=== PATIENT | male | born 1950 | race Caucasian/White ===

== ENCOUNTER 2017-06-09 15:41 | Inpatient (IN) | payer MEDICARE, OTHER ==
[~2017-06-09] VITALS: Ht 179.1 cm; Wt 95.9 kg
[~2017-06-09 15:41] MED LIST: ASPI81TA11 PO; CETI10 PO; DIAZ5TAB PO; EXPECTORANT; LISI40TA PO; MOBI7.5T PO; MULTTAB67 PO; NAPR500 PO; OMEP20TA PO; SIMV20TA PO; TRAZ50TA12 PO; VENTAER INH; [UNRECOGNIZED DRUG - REMARK] PO
[2017-06-09] MEDS ORDERED: RESP: ALBUTEROL 2.5 MG/3 ML NEB (PRN) INH (18:00)
[2017-06-09] MEDS ORDERED: oxyCODONE/ACETAMINOPHEN 5 MG/325 MG TAB PO PRN (18:00)
[2017-06-09] MEDS ORDERED: LACTULOSE SYRUP 20 GM/30 ML CUP PO PRN (18:00)
[2017-06-09] MEDS ORDERED: SENNOSIDES 8.6 MG TAB PO PRN (18:00)
[2017-06-09] MEDS ORDERED: NALOXONE HCL 0.4 MG/ML AMP IV PUSH PRN (18:00)
[2017-06-09] MEDS ORDERED: SODIUM CHLORIDE 0.9% FLUSH 10 ML FLUSH IV FLUSH PRN ×2 (18:00)
[2017-06-09] MEDS ORDERED: MAGNESIUM HYDROXIDE SUSP 30 ML CUP PO PRN (18:00)
[2017-06-09] MEDS ORDERED: ACETAMINOPHEN 325 MG TAB PO PRN ×2 (18:00)
[2017-06-09] MEDS ORDERED: oxyCODONE/ACETAMINOPHEN 10 MG/325 MG TAB PO PRN (18:00)
[2017-06-09] MEDS ORDERED: ONDANSETRON HCL 4 MG/2 ML VIAL IVP PRN (18:00)
[2017-06-09] MEDS ORDERED: DEXTROSE 50% IN WATER 50 ML VIAL(D50) IV PUSH PRN (18:00)
[2017-06-09] MEDS ORDERED: MORPHINE SULFATE 4 MG/ML INJ IV PUSH PRN ×2 (18:00)
[2017-06-09] MEDS ORDERED: GLUCAGON 1 MG/ML VIAL OTHER PRN ×2 (18:00)
[2017-06-09] MEDS ORDERED: PROCHLORPERAZINE 25 MG SUPP RECTAL PRN (18:00)
[2017-06-09] MEDS ORDERED: BISACODYL 10 MG SUPP RECTAL PRN (18:00)
[2017-06-09 20:00] VITALS: BP 147/78; PULSE 114; RESP 20; TEMP 98; O2SAT 95
[2017-06-09] MEDS: RESP: ALBUTEROL 2.5 MG/IPRATROPIUM 0.5 MG NEB (SCH) INH (20:00)
[2017-06-09] MEDS ORDERED: ENOXAPARIN SODIUM 40 MG/0.4 ML SYRINGE SQ SCH (20:00)
[2017-06-09 20:28] VITALS: O2SAT 96
[2017-06-09] MEDS ORDERED: traZODone HCL 50 MG TAB PO SCH (21:00)
[2017-06-09] MEDS ORDERED: PRAVASTATIN SOD 40 MG TAB PO SCH (21:00)
[2017-06-09] MEDS ORDERED: SODIUM CHLORIDE 0.9% FLUSH 10 ML FLUSH IV FLUSH SCH (21:00)
[2017-06-09] MEDS: NAPROXEN 500 MG TAB PO SCH ×2 (21:00→23:41)
[2017-06-09] MEDS: guaiFENesin E.R. 600 MG TAB PO SCH (21:00)
[2017-06-09] MEDS: INSULIN ASPART SUPPLEMENTAL SCALE SQ SCH ×2 (21:00→23:42)
[2017-06-09] MEDS: DOCUSATE SODIUM 50 MG/SENNA 8.6 MG TAB PO SCH (21:00)
--- NOTE | 2017-06-09 21:13 | EKG ---
Date Performed: 06/09/2017 Time Performed: 19:53:53 PTAGE: 66 years EKG: SINUS TACHYCARDIA POSSIBLE LEFT ATRIAL ENLARGEMENT SEPTAL MYOCARDIAL INFARCTION , OF INDETE RMINATE AGE Nonspecific T wave changes Compared to prior electrocardiogram, Premature ventricular con tractions no longer present. ABNORMAL ECG NO PREVIOUS TRACING DOCTOR: Triston Grant Interpretating Date/Time 06/09/2017 21:11:30
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
[2017-06-09] MEDS: SODIUM CHLORIDE 0.9% FLUSH 10 ML FLUSH IV FLUSH SCH (23:40)
[2017-06-09] MEDS: BUDESONIDE-FORMOTEROL 160/4.5 MCG INHALER INH SCH (23:40)
[2017-06-09] MEDS: methylPREDNISolone SOD SUCC 125 MG/2 ML VIAL IV PUSH SCH (23:41)
[2017-06-10] VITALS (8 sets, daily range): BP systolic 123–141; BP diastolic 72–96; PULSE 77–122; RESP 16–20; TEMP 97.4–97.8; O2SAT 92–100
[2017-06-10] MEDS: RESP: ALBUTEROL 2.5 MG/IPRATROPIUM 0.5 MG NEB (SCH) INH ×5 (00:26→16:00)
[2017-06-10] MEDS ORDERED: METHOCARBAMOL 500 MG TAB PO ONE (01:15)
[2017-06-10] MEDS ORDERED: VENLAFAXINE HCL XR 75 MG CAP PO ONE (01:15)
[2017-06-10] MEDS ORDERED: DIAZEPAM 5 MG TAB PO PRN (01:15)
[2017-06-10] MEDS ORDERED: ROBA500T PO (01:17)
[2017-06-10] MEDS ORDERED: VENL75XR PO (01:17)
[2017-06-10] MEDS ORDERED: DIAZ5 PO (01:17)
[2017-06-10] MEDS ORDERED: LISINOPRIL 20 MG TAB PO ONE (02:00)
[2017-06-10] MEDS ORDERED: LISINOPRIL 5 MG TAB PO ONE (02:00)
[2017-06-10] MEDS: methylPREDNISolone SOD SUCC 125 MG/2 ML VIAL IV PUSH SCH ×3 (02:09→14:01)
[2017-06-10 05:56] LABS: AUTOMATED NEUTROPHIL # 5.7 TH/MM3 (1.8-7.7); BASOPHIL % 0.2 % (0.0-2.0); EOSINOPHIL % 0.1 % (0.0-4.0); HEMATOCRIT 44.2 % (39.0-51.0); HEMO FLAGS DIFF FINAL; LYMPH % 9.3 % (9.0-44.0); LYMPHOCYTE # 0.6 TH/MM3 (1.0-4.8); MEAN CELL VOLUME 87.4 FL (80.0-100.0); MEAN CORPUSCULAR HEMOGLOBIN 29.4 PG (27.0-34.0); MEAN CORPUSCULAR HGB CONC 33.6 % (32.0-36.0); MONO % 3.8 % (0.0-8.0); NEUT % 86.6 % (16.0-70.0); PLATELET COUNT 178 TH/MM3 (150-450); RED BLOOD COUNT 5.06 MIL/MM3 (4.50-5.90); RED CELL DISTRIBUTION WIDTH 15.6 % (11.6-17.2); WHITE BLOOD COUNT 6.6 TH/MM3 (4.0-11.0)
[2017-06-10 06:18] LABS: ALT (GPT) 38 U/L (12-78); ANION GAP 7 MEQ/L (5-15); AST (GOT) 14 U/L (15-37); BICARBONATE 28.9 MEQ/L (21.0-32.0); BLOOD UREA NITROGEN 12 MG/DL (7-18); CHLORIDE 101 MEQ/L (98-107); GLOMERULAR FILTRATION RATE 78 ML/MIN (>89); MAGNESIUM 1.9 MG/DL (1.5-2.5); POTASSIUM 3.9 MEQ/L (3.5-5.1); SODIUM (NA) 137 MEQ/L (136-145)
[2017-06-10 06:27] LABS: ALKALINE PHOSPHATASE 64 U/L (45-117); FREE T4 0.89 NG/DL (0.76-1.46); TOTAL BILIRUBIN ADULT 0.6 MG/DL (0.2-1.0)
[2017-06-10 06:29] LABS: CREATINE KINASE 80 U/L (39-308)
[2017-06-10] MEDS: INSULIN ASPART SUPPLEMENTAL SCALE SQ SCH ×2 (08:00→11:50)
[2017-06-10] MEDS ORDERED: FUROSEMIDE 20 MG/2 ML VIAL IV PUSH SCH (09:00)
[2017-06-10] MEDS ORDERED: LISINOPRIL 20 MG TAB PO SCH ×2 (09:00→21:00)
[2017-06-10] MEDS ORDERED: PANTOPRAZOLE SOD 20 MG DELAYED RELEASE TAB PO SCH (09:00)
[2017-06-10] MEDS ORDERED: MULTIVITAMIN TAB PO SCH (09:00)
[2017-06-10] MEDS ORDERED: METHOCARBAMOL 500 MG TAB PO SCH (09:00)
[2017-06-10] MEDS ORDERED: ASPIRIN EC 81 MG TABEC PO SCH (09:00)
[2017-06-10] MEDS ORDERED: CETIRIZINE HCL 10 MG TAB PO SCH (09:00)
[2017-06-10] MEDS: NAPROXEN 500 MG TAB PO SCH (09:18)
[2017-06-10] MEDS: DOCUSATE SODIUM 50 MG/SENNA 8.6 MG TAB PO SCH (09:19)
[2017-06-10] MEDS: guaiFENesin E.R. 600 MG TAB PO SCH (09:20)
[2017-06-10] MEDS: SODIUM CHLORIDE 0.9% FLUSH 10 ML FLUSH IV FLUSH SCH (09:21)
[2017-06-10] MEDS: BUDESONIDE-FORMOTEROL 160/4.5 MCG INHALER INH SCH (09:21)
--- NOTE | 2017-06-10 09:27 | EKG ---
Date Performed: 06/10/2017 Time Performed: 00:25:40 PTAGE: 66 years EKG: Sinus tachycardia Possible septal infarct - age undetermined Lateral T wave changes are non specific Abnormal ECG Compared to prior electrocardiogram, probably no significant change. PREVIOUS TRACING : 06/09/2017 19.53 DOCTOR: Triston Grant Interpretating Date/Time 06/10/2017 09:26:05
--- NOTE | 2017-06-10 11:33 | ECHRPT ---
Indication: heart failure CONCLUSIONS The left ventricular systolic function is severely reduced with an estimated ejection fraction in th e range of 20-25%. Normal left ventricular size. Mild mitral valve regurgitation. The left ventricular systolic function is severely reduced with an estimated ejection fraction in th e range of 20-25%. Mildly dilated left ventricle. Mild concentric left ventricular hypertrophy. Doppler parameters are consistent with impaired left ventricular relaxtion (grade 1 diastolic dysfun ction). The left atrial size is mildly dilated. Mild mitral valve regurgitation. The aortic valve is not well visualized. Moderate thickening of the aortic valve leaflets. Aortic valve sclerosis is present. No aortic valve stenosis. No aortic valve regurgitation. There is trace tricuspid valve regurgitation. The inferior vena cava is dilated. A left sided pleural effusion is noted. BP: / HR: Rhythm: MEASUREMENTS (Male / Female) Normal Values Technical Quality:Fair 2D ECHO LV Diastolic Diameter PLAX 4.8 cm 4.2 - 5.9 / 3.9 - 5.3 cm LV Systolic Diameter PLAX 4.4 cm IVS Diastolic Thickness 1.3 cm 0.6 - 1.0 / 0.6 - 0.9 cm LVPW Diastolic Thickness 1.3 cm 0.6 - 1.0 / 0.6 - 0.9 cm LV Relative Wall Thickness 0.5 RV Internal Dim ED PLAX 2.9 cm M-MODE Aortic Root Diameter MM 3.6 cm LA Systolic Diameter MM 5.0 cm LA Ao Ratio MM 1.4 AV Cusp Separation MM 1.4 cm DOPPLER LV E' Lateral Velocity 14.1 cm/s LV E' Septal Velocity 15.1 cm/s TR Peak Velocity 278.0 cm/s TR Peak Gradient 30.9 mmHg Right Atrial Pressure 10.0 mmHg Pulmonary Artery Systolic Pressu 40.9 mmHg Right Ventricular Systolic Press 40.9 mmHg FINDINGS LEFT VENTRICLE The left ventricular systolic function is severely reduced with an estimated ejection fraction in th e range of 20-25%. Mildly dilated left ventricle. Mild concentric left ventricular hypertrophy. Doppler parameters are consistent with impaired left ventricular relaxtion (grade 1 diastolic dysfun ction). RIGHT VENTRICLE Normal right ventricular size and systolic function. LEFT ATRIUM The left atrial size is mildly dilated. RIGHT ATRIUM The right atrial size is normal. ATRIAL SEPTUM Normal atrial septal thickness without atrial level shunting by limited color doppler interrogation. AORTA The aortic root and proximal ascending aorta are normal in size on limited imaging. MITRAL VALVE Structurally normal mitral valve. Mild mitral valve regurgitation. AORTIC VALVE The aortic valve is not well visualized. Moderate thickening of the aortic valve leaflets. Aortic valve sclerosis is present. No aortic valve stenosis. No aortic valve regurgitation. TRICUSPID VALVE Structurally normal tricuspid valve. There is trace tricuspid valve regurgitation. PULMONARY VALVE No pulmonary valve regurgitation or stenosis. VESSELS The inferior vena cava is dilated. PERICARDIUM A left sided pleural effusion is noted. No pericardial effusion. Triston Grant MD (Electronically Signed) Final Date:10 June 2017 11:32
[2017-06-10 12:53] LABS: HEMOGLOBIN A1a 1.1 %; HEMOGLOBIN A1b 1.8 %; HEMOGLOBIN Ao 84.9 %; HEMOGLOBIN LA1C 2.5 %; HEMOGLOBIN P3 3.8 %
--- NOTE | 2017-06-10 13:04 | HHI.PR ---
Subjective Remarks Patient states his breathing is much better and he wants to be discharged Denies cp Denies fevers/chills still has cough but now is dry Objective Vitals Vital Signs Date Time Temp Pulse Resp B/P (MAP) Pulse Ox O2 Delivery O2 Flow Rate FiO2 06/10/17 10:34 110 06/10/17 09:35 97 Nasal Cannula 3.50 06/10/17 04:56 94 Nasal Cannula 3.50 06/10/17 04:00 97.4 100 18 123/74 (90) 92 06/10/17 03:00 111 06/10/17 00:00 97.5 118 20 141/96 (111) 96 06/09/17 20:28 96 Nasal Cannula 3.50 06/09/17 20:00 98.0 114 20 147/78 (101) 95 Result Diagram: 06/10/17 0542 06/10/[address] pulmonary angiogram reviewed by me did not show any pulmonary embolus. There is a small bilateral pleural effusions with bibasilar intralobular opacities and diffuse interstitial prominence suggestive of pulmonary edema. Significant coronary artery atherosclerotic calcifications. Mediastinal adenopathy. No axillary adenopathy appreciated. Objective Remarks AAOx3 Mild tachypnea S1S2 RRR, no MRG tachycardic There is good air movement on bilateral lung [place], decreased breath sounds at the bases with few bibasilar bilateral rales No edema in lower extremities Urinary Catheter: No Vascular Central Line Catheter: No A/P Problem List: (1) Acute CHF ICD Code: I50.9 - Heart failure, unspecified Plan: The patient was admitted to the medical floor CT pulmonary angiogram showed bilateral pleural effusions and changes consistent with congestive heart failure. PE ruled out. Chest x-ray showed a prominent interstitium of indeterminate chronicity and significance. No consolidative acute process. Continue diureses with IV furosemide Troponins negative 3 To the echocardiogram 2D echocardiogram shows the left ventricle systolic function which is severely reduced with an estimated ejection fraction in the range of 20-25%. Mild concentric left ventricular hypertrophy and grade 1 diastolic dysfunction. EKG reviewed by me shows sinus tachycardia with T-wave inversions in the lateral leads but no ST elevations or depressions. Consult cardiology (2) Pleural effusion, bilateral ICD Code: J90 - Pleural effusion, not elsewhere classified Plan: Continue IV furosemide 20 mg by mouth twice a day. Pulmonology consulted and recommendations pending. (3) Tachycardia ICD Code: R00.0 - Tachycardia, unspecified Status: Acute Plan: Likely secondary to acute CHF. (4) COPD (chronic obstructive pulmonary disease) ICD Code: J44.9 - Chronic obstructive pulmonary disease, unspecified Plan: Questionable diagnosis of COPD. And has not had any workup for. Certainly not on a COPD exacerbation at this time. (5) Acute bronchitis ICD Code: J20.9 - Acute bronchitis, unspecified Status: Acute Plan: Patient presented with cough and yellow sputum production. However patient states feels better. Patient started on Levaquin IV which I will switch to by mouth. Assessment and Plan Prophylaxis: PPI. DVT prophylaxis: SCDs. Patient is demanding to be discharge. I had a long discussion with the patient and was at bedside stating that echo Cardizem shows that he has cardiomyopathy with a low ejection fraction, CT of the chest showed bilateral pleural effusions and mild edema. Recommended cardiology consultation. The patient advised to stay, however he may leave AGAINST MEDICAL ADVICE if he wishes to do so. 45 minutes of time providing advised the patient and spent with patient. Discharge Planning Cardiology and pulmonology consultation pending. The patient may leave AMA. Problem Qualifiers (1) Acute CHF: Qualified Codes: I50.41 - Acute combined systolic (congestive) and diastolic ( congestive) heart failure (2) COPD (chronic obstructive pulmonary disease): Qualified Codes: J44.9 - Chronic obstructive pulmonary disease, unspecified (3) Acute bronchitis: Qualified Codes: J20.9 - Acute bronchitis, unspecified Oseas Metzger MD Jun 10, 2017 13:04
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
[2017-06-10] MEDS ORDERED: FURO40TA PO (14:39)
[2017-06-10] MEDS ORDERED: LEVO750T3 PO (14:39)
--- NOTE | 2017-06-10 14:39 | HHI.DCPOC ---
Discharge Care Plan Diagnosis: (1) Pleural effusion, bilateral (2) Acute CHF (3) Acute bronchitis (4) Tachycardia (5) COPD (chronic obstructive pulmonary disease) Goals to Promote Your Health * To prevent worsening of your condition and complications * To maintain your health at the optimal level Directions to Meet Your Goals Take your medications as prescribed Follow your dietary instruction Follow activity as directed Keep your appointments as scheduled Take your immunizations and boosters as scheduled If your symptoms worsen call your PCP, if no PCP go to Urgent Care Center or Emergency Room Smoking is Dangerous to Your Health. Avoid second hand smoke Call the 24-hour hour crisis hotline for domestic abuse at Oseas Metzger MD Jun 10, 2017 14:39
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
[2017-06-10] MEDS ORDERED: LEVOFLOXACIN 750 MG PREMIX INJ 150 ML IV SCH (16:00)
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
[2017-06-10] MEDS ORDERED: VENLAFAXINE HCL XR 75 MG CAP PO SCH (21:00)
[2017-06-10] MEDS ORDERED: methylPREDNISolone SOD SUCC 125 MG/2 ML VIAL IV PUSH SCH (22:00)
== END 2017-06-10 17:34 | disposition left against medical advice (07) | DRG 190 ==
LOC: NEDDLT 15:41 → N05B 18:45
PROVIDERS: ADMIT Hospitalist; ATTEND Hospitalist
DX: J44.0 Chronic obstructive pulmonary disease with (acute) lower respiratory infection (principal); I50.21 Acute systolic (congestive) heart failure; I42.9 Cardiomyopathy, unspecified; J98.11 Atelectasis; J44.1 Chronic obstructive pulmonary disease with (acute) exacerbation; I11.0 Hypertensive heart disease with heart failure; J20.9 Acute bronchitis, unspecified; R09.02 Hypoxemia; R00.0 Tachycardia, unspecified; F43.10 Post-traumatic stress disorder, unspecified; F32.9 Major depressive disorder, single episode, unspecified; E78.5 Hyperlipidemia, unspecified; R73.9 Hyperglycemia, unspecified; G89.29 Other chronic pain; M19.90 Unspecified osteoarthritis, unspecified site; Z96.652 Presence of left artificial knee joint; Z85.828 Personal history of other malignant neoplasm of skin; Z87.891 Personal history of nicotine dependence
CPT/HCPCS: 80053; 82550; 82948; 83036; 83735; 83880; 84100; 84439; 84443; 84484; 85025; 93005; 93306; 94640; 94664; J1650; J1815; J1940; J2930